=== PATIENT | female | born 1995 | race Caucasian/White ===

== ENCOUNTER 2017-02-13 12:33 | Emergency (ER) | payer SELFPAY ==
--- NOTE | 2017-02-13 12:54 | ER Document Report ---
ED Medical Screen (RME) - General Chief Complaint: Foreign Body in Eye Stated Complaint: EYE PAIN Time Seen by Provider: 02/13/17 12:48 Notes: 22-year-old female patient with severe pain in the left eye. She thinks contact is stuck in folded under. Brief exam shows considerable injection inflammation. Tetracaine drops were placed in her eye for comfort prior to being seen in the back. I have greeted and performed a rapid initial assessment of this patient. A comprehensive ED assessment and evaluation of the patient, analysis of test results and completion of the medical decision making process will be conducted by additional ED providers. TRAVEL OUTSIDE OF THE [place] IN LAST 30 DAYS: No - Related Data Allergies/Adverse Reactions: Sulfa (Sulfonamide Antibiotics) Allergy (Verified 02/13/17 12:34) Home Medications: Current Home Medications No Home Medications 02/13/17 [History] Past Medical History - Social History Chew tobacco use (# tins/day): No Frequency of alcohol use: Social Drug Abuse: None Renal/ Medical History: Denies: Hx Peritoneal Dialysis Physical Exam - Vital signs Vitals: Temp Pulse Resp BP Pulse Ox 98.4 F 100 16 136/83 H 99 02/13/17 12:37 02/13/17 12:37 02/13/17 12:37 02/13/17 12:37 02/13/17 12:37 Course - Vital Signs Vital signs: Temp Pulse Resp BP Pulse Ox 98.4 F 100 16 136/83 H 99 02/13/17 12:37 02/13/17 12:37 02/13/17 12:37 02/13/17 12:37 02/13/17 12:37
--- NOTE | 2017-02-13 14:01 | ER Document Report ---
ED Foreign Body - General Chief Complaint: Foreign Body in Eye Stated Complaint: EYE PAIN Time Seen by Provider: 02/13/17 12:48 Mode of Arrival: Ambulatory Information source: Patient Notes: Pt is a 22 year old female who wears contacts who presents to the ER today for irritation and pain to the left eye after trying to get her contact out last night and not being able to. She states she got the right contact out, but thinks the left contact is maybe "folded under my eyelid" per patient. She says she's been trying to get it out since last night. She denies any blurred vision or headache. TRAVEL OUTSIDE OF THE [place] IN LAST 30 DAYS: No - Related Data Allergies/Adverse Reactions: Sulfa (Sulfonamide Antibiotics) Allergy (Verified 02/13/17 12:34) Past Medical History - General Information source: Patient - Social History Smoking Status: Current Every Day Smoker Chew tobacco use (# tins/day): No Frequency of alcohol use: Social Drug Abuse: None Family History: Reviewed & Not Pertinent Patient has suicidal ideation: No Patient has homicidal ideation: No Renal/ Medical History: Denies: Hx Peritoneal Dialysis Past Surgical History: Reports: Hx Cholecystectomy, Hx Tonsillectomy - and adenoids Review of Systems - Review of Systems Constitutional: No symptoms reported EENT: See HPI Cardiovascular: No symptoms reported Respiratory: No symptoms reported Gastrointestinal: No symptoms reported Genitourinary: No symptoms reported Female Genitourinary: No symptoms reported Musculoskeletal: No symptoms reported Skin: No symptoms reported Hematologic/Lymphatic: No symptoms reported Neurological/Psychological: No symptoms reported Physical Exam - Vital signs Vitals: Temp Pulse Resp BP Pulse Ox 98.4 F 100 16 136/83 H 99 02/13/17 12:37 02/13/17 12:37 02/13/17 12:37 02/13/17 12:37 02/13/17 12:37 - Notes Notes: PHYSICAL EXAMINATION: GENERAL: obviously irritated, holding left eye, but in no acute distress. HEAD: Atraumatic, normocephalic. EYES: Pupils equal round and reactive to light, extraocular movements intact, sclera anicteric, conjunctiva erythematous and watering to left eye NECK: Normal range of motion, supple without lymphadenopathy LUNGS: CTAB and equal. No wheezes rales or rhonchi. HEART: Regular rate and rhythm without murmurs EXTREMITIES: Normal range of motion, no pitting edema. No cyanosis. NEUROLOGICAL: Cranial nerves grossly intact. Normal sensory/motor exams. PSYCH: Normal mood, normal affect. SKIN: Warm, Dry, normal turgor, no rashes or lesions noted Course - Re-evaluation Re-evalutation: 02/15/17 12:11 flourescien stain and ta lamp after tetracaine drops resulted in no contact located in eye, 2 small abrasions over the iris, no corneal abrasion or ulcer, pt will go home from the ER with ciprofloxacin drops and I will give her a script for ketorolac eye drops for pain. She has an opthalmologist, but not here as she just moved here, I will give her Dr. Fernando's information for eye care here and advise she follow up jovon. 02/15/17 12:15 - Vital Signs Vital signs: Temp Pulse Resp BP Pulse Ox 98.5 F 76 18 129/69 H 98 02/13/17 14:38 02/13/17 14:38 02/13/17 14:38 02/13/17 14:38 02/13/17 14:38 Procedures - Eye Procedure Left Time completed: 02:15 Eye Irrigated w/ Saline (ccs): 20 Alcaine Drops Administered: Yes Fluorescein applied: Left Antibiotic Oinment/Drps Admin: Left eye Slit lamp used: No Notes: 02/13/17 14:30 no contact, multiple small abrasions to left iris, none over cornea, will give cipro eye drops to go home with here and ketorolac eye drops here in ER. Will send to opthalmologist outpatient Discharge - Discharge Clinical Impression: Abrasion of left eye Qualifiers: Encounter type: initial encounter Qualified Code(s): S05.8X2A - Other injuries of left eye and orbit, initial encounter Condition: Stable Disposition: HOME, SELF-CARE Additional Instructions: Return immediately for any new or worsening symptoms. Follow up with [facility], call tomorrow to make followup appointment. Prescriptions: Ketorolac Tromethamine 1 drop OS QID PRN #1 bottle PRN Reason: Forms: Return to Work Referrals: HEMA FERNANDO, [ACTIVE STAFF] - Follow up as needed
[2017-02-13] MEDS ORDERED: KETOROLAC TROMETHAMINE 0.45% 4 DROP/0.4 ML DROPERETTE OS ONE (14:28)
[2017-02-13] MEDS ORDERED: CIPROFLOXACIN HCL 0.3% OPH SOLN 2.5 ML OS ONE (14:28)
[2017-02-13 14:39] VITALS: BP 129/69
== END 2017-02-13 14:58 | disposition home or self-care (01) ==
LOC: ER 12:33
DX: S05.8X2A Other injuries of left eye and orbit, initial encounter (principal); X58.XXXA Exposure to other specified factors, initial encounter; F17.200 Nicotine dependence, unspecified, uncomplicated; Z88.2 Allergy status to sulfonamides
CPT/HCPCS: 99283; J3490

== ENCOUNTER 2018-03-30 17:42 | Emergency (ER) | payer SELFPAY ==
[2018-03-30 18:05] VITALS: BP 141/80
--- NOTE | 2018-03-30 19:17 | ER Document Report ---
ED Medical Screen (RME) - General Chief Complaint: Vaginal Bleeding Stated Complaint: ABDOMINAL PAIN Time Seen by Provider: 03/30/18 19:09 Mode of Arrival: Ambulatory Information source: Patient Notes: This is a 23-year-old female presents to the emergency room with abnormal vaginal bleeding associated with pelvic pain for the past 2 weeks. Patient denies fever. She has had her gallbladder taken out. 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 TRAVEL OUTSIDE OF THE [place] IN LAST 30 DAYS: No - Related Data Allergies/Adverse Reactions: Sulfa (Sulfonamide Antibiotics) Allergy (Verified 02/13/17 12:34) Past Medical History Renal/ Medical History: Denies: Hx Peritoneal Dialysis Past Surgical History: Reports: Hx Cholecystectomy, Hx Tonsillectomy - and adenoids Physical Exam - Vital signs Vitals: Temp Pulse Resp BP Pulse Ox 98.8 F 70 17 141/80 H 99 03/30/18 18:03 03/30/18 18:03 03/30/18 18:03 03/30/18 18:03 03/30/18 18:03 Course - Vital Signs Vital signs: Temp Pulse Resp BP Pulse Ox 98.8 F 70 17 141/80 H 99 03/30/18 18:03 03/30/18 18:03 03/30/18 18:03 03/30/18 18:03 03/30/18 18:03
[2018-03-30 19:51] LABS: ABSOLUTE BASOPHILS # (AUTO) 0.1 10^3/uL (0.0-0.2); ABSOLUTE EOSINOPHILS # (AUTO) 0.4 10^3/uL (0.0-0.6); ABSOLUTE LYMPHOCYTES (AUTO) 3.6 10^3/uL (0.5-4.7); ABSOLUTE NEUT (AUTO) 9.9 10^3/uL (1.7-8.2); BASOPHILS % (AUTO) 0.6 % (0-2); EOSINOPHILS % (AUTO) 2.7 % (0-6); HEMATOCRIT 45.2 % (36.0-47.0); HEMOGLOBIN 15.3 g/dL (12.0-15.5); MEAN CORPUSCULAR HEMOGLOBIN 31.1 pg (27.0-33.4); MEAN CORPUSCULAR HGB CONC 33.8 g/dL (32.0-36.0); MEAN CORPUSCULAR VOLUME 92 fl (80-97); MONOCYTES % (AUTO) 6.4 % (3-13); PLATELET COUNT 369 10^3/uL (150-450); RED BLOOD COUNT 4.91 10^6/uL (3.72-5.28); RED CELL DISTRIBUTION WIDTH 12.7 % (11.5-14.0); SEGMENTED NEUTROPHILS % (AUTO) 66.3 % (42-78); TOTAL CELLS COUNTED % (AUTO) 100 %
[2018-03-30 20:00] LABS: APPEARANCE,URINE SLIGHTLY-CLOUDY; BILIRUBIN,URINE NEGATIVE (NEGATIVE); COLOR,URINE YELLOW; GLUCOSE, URINE NEGATIVE (NEGATIVE); KETONES,URINE TRACE mg/dL (NEGATIVE); LEUKOCYTE ESTERASE,URINE NEGATIVE (NEGATIVE); NITRITE,URINE NEGATIVE (NEGATIVE); PROTEIN,URINE NEGATIVE (NEGATIVE); URINE SPECIFIC GRAVITY 1.021
[2018-03-30 20:05] LABS: ALANINE AMINOTRANSFERASE 16 U/L (9-52); ALBUMIN 5.1 g/dL (3.5-5.0); ALKALINE PHOSPHATASE 66 U/L (38-126); ANION GAP 13 (5-19); ASPARTATE AMINO TRANSFERASE 24 U/L (14-36); BILIRUBIN,DIRECT 0.3 mg/dL (0.0-0.4); BILIRUBIN,TOTAL 0.8 mg/dL (0.2-1.3); BLOOD UREA NITROGEN 10 mg/dL (7-20); CALCIUM 10.4 mg/dL (8.4-10.2); CARBON DIOXIDE 27 mmol/L (22-30); CHLORIDE 103 mmol/L (98-107); GLUCOSE 88 mg/dL (75-110); POTASSIUM 3.9 mmol/L (3.6-5.0); SODIUM 142.5 mmol/L (137-145); TOTAL PROTEIN 7.5 g/dL (6.3-8.2)
--- NOTE | 2018-03-30 20:56 | ER Document Report ---
ED General - General Chief Complaint: Vaginal Bleeding Stated Complaint: ABDOMINAL PAIN Time Seen by Provider: 03/30/18 19:09 Mode of Arrival: Ambulatory Notes: Patient is a 23-year-old female who presents the emergency department with a chief complaint of vaginal bleeding for the past 2 weeks. Her bleeding is brown, pink, and sometimes red in color. She states that she started her cycle 2 weeks ago, but has not stopped bleeding. She also has some associated right lower abdominal pain that started today. She states that it is a sharp pain in her right lower abdomen. She states that she was on control before because she had irregular periods. They stopped giving her her control because she was having "strokelike symptoms." she has history of a cholecystectomy. She also has history of HPV, in which she received Gardasil. She has an appointment with [facility] on . TRAVEL OUTSIDE OF THE [place] IN LAST 30 DAYS: No - Related Data Allergies/Adverse Reactions: Sulfa (Sulfonamide Antibiotics) Allergy (Verified 02/13/17 12:34) Past Medical History - General Information source: Patient - Social History Smoking Status: Unknown if Ever Smoked Family History: Reviewed & Not Pertinent Patient has suicidal ideation: No Patient has homicidal ideation: No Renal/ Medical History: Denies: Hx Peritoneal Dialysis Past Surgical History: Reports: Hx Cholecystectomy, Hx Tonsillectomy - and adenoids Review of Systems - Review of Systems Notes: REVIEW OF SYSTEMS: CONSTITUTIONAL : Denies recent illness. Denies recent unintentional weight loss. Denies fever, chills, or sweats. EENT: Denies eye, ear, throat, or mouth pain, discharge, or symptoms. Denies nasal or sinus congestion. CARDIOVASCULAR: Denies chest pain. RESPIRATORY: Denies shortness of breath, cough, congestion, difficulty breath ing, or wheezing. GASTROINTESTINAL: Denies nausea, vomiting, and diarrhea. Denies abdominal pain. Denies constipation. Last BM: GENITOURINARY: Denies difficulty urinating, burning, blood in urine, urgency or frequency. FEMALE GENITOURINARY: See HPI. MUSCULOSKELETAL: Denies neck and back pain. Denies joint pain or swelling. SKIN: Denies rash, itchiness, or lesions HEMATOLOGIC : Denies easy bruising or bleeding. LYMPHATIC: Denies swollen, painful, enlarged glands. NEUROLOGICAL: Denies no numbness or tingling denies weakness. Denies headache. Denies altered mental status. Denies alteration in speech. PSYCHIATRIC: Denies stress, anxiety, alteration in sleep patterns, or depress ion. All other systems reviewed and negative. Physical Exam - Vital signs Vitals: Temp Pulse Resp BP Pulse Ox 98.8 F 70 17 141/80 H 99 03/30/18 18:03 03/30/18 18:03 03/30/18 18:03 03/30/18 18:03 03/30/18 18:03 - Notes Notes: PHYSICAL EXAMINATION: GENERAL: Appears well, healthy, well-nourished, no acute distress. HEAD: Normocephalic, atraumatic. EYES: PERRL, conjunctiva normal, all extraocular movements intact, sclera nonicteric ENT: Moist mucous membranes. NECK: Supple, no noticeable swelling, redness, rash. Normal range of motion. LUNGS: Equal breath sounds bilaterally and clear to auscultation. No wheezes rales or rhonchi. CARDIOVASCULAR: S1-S2, regular rate, regular rhythm. Radial pulses 2+, normal. ABDOMEN: Normoactive bowel sounds. Soft, tender lower abdomen on the right, no guarding, no rebound tenderness, and no masses palpated. EXTREMITIES: Normal strength and range of motion, no pitting or edema. No cyanosis. NEUROLOGICAL: Moves all extremities upon command. Strength 5/5 in all extremities. PSYCH: Normal mood, normal affect. SKIN: Warm, dry. No rash, lesions, ulcerations noted. Normal skin turgor. Course - Re-evaluation Re-evalutation: 03/30/18 22:06 Patient does have a 2.4 cm ovarian cyst on the right, consistent with her physical exam. Her hematology is normal, no anemia noted. Her chemistries are normal. She does have moderate amount of blood in her urine, consistent with vaginal bleeding. She is refusing to have a pelvic exam done. She states she will follow-up with [facility] on . I have a very lo w suspicion for appendicitis, colitis, diverticulitis, or any abdominal etiology. Strict return precautions were given to the patient. Verbal discharge instructions were given to the patient. They verbalized understanding. They are stable for discharge. - Vital Signs Vital signs: Temp Pulse Resp BP Pulse Ox 98.8 F 70 17 141/80 H 99 03/30/18 18:03 03/30/18 18:03 03/30/18 18:03 03/30/18 18:03 03/30/18 18:03 - Laboratory Result Diagrams: 03/30/18 19:30 03/30/18 19:30 Laboratory results interpreted by me: 03/30/18 03/30/18 03/30/18 19:30 19:30 19:30 WBC 15.0 H Absolute Neutrophils 9.9 H Calcium 10.4 H Albumin 5.1 H Urine Ketones TRACE H Urine Blood MODERATE H Urine Urobilinogen 2.0 H Discharge - Discharge Clinical Impression: Vaginal bleeding Condition: Stable Disposition: HOME, SELF-CARE Additional Instructions: You were seen today in the emergency department for vaginal bleeding. Your vaginal bleeding is due to abnormal uterine bleeding. You also have an ovarian cyst in the right side. Please follow-up with [facility] in regards to this visit. You have been given Toradol, medication for pain. You may take 1 tablet every 6 hours as needed for your pain. While you are on Toradol, please do not take ibuprofen. You may also take Tylenol 1000 milligrams every 6 hours as needed for your pain. If you pass out, soak 2 pads in 1 hour, or have worsening abdominal pain, please return to the emergency department. Prescriptions: Ketorolac Tromethamine [Toradol 10 mg Tablet] 10 mg PO Q6HP PRN #20 tablet PRN Reason:
--- NOTE | 2018-03-30 21:16 | RADIOLOGY REPORT (SQ) ---
US PELVIS HISTORY: Irregular menses. COMPARISON: None. TECHNIQUE: Grayscale, color Doppler, and spectral Doppler ultrasound images of the pelvis were obtained. FINDINGS: The uterus is anteverted and measures 6.7 cm endometrium is 7 mm in thickness the cervix measures 3 cm in length. Both ovaries are normal, with the right measuring 3.9 x 3.2 x 4.4 cm and the left measuring 3.1 x 1.7 x 3.0 cm. Normal color Doppler blood flow is seen in both ovaries. There is a simple cyst in the right ovary measuring 2.4 x 2.2 x 2.2 cm. IMPRESSION: 2.4 cm right ovarian cyst. Otherwise unremarkable study
[2018-03-30] MEDS ORDERED: KETOROLAC TROMETHAMINE 10 MG TABLET PO ONE (22:05)
== END 2018-03-30 22:32 | disposition home or self-care (01) ==
LOC: ER 17:42
DX: N93.9 Abnormal uterine and vaginal bleeding, unspecified (principal); N83.291 Other ovarian cyst, right side; R10.31 Right lower quadrant pain; Z90.49 Acquired absence of other specified parts of digestive tract; Z88.2 Allergy status to sulfonamides
CPT/HCPCS: 99284; 36415; 84702; 85025; 80053; 76830; 81001; 93976; J3490